=== PATIENT | male | born 1960 | race Hispanic/Latino ===

== ENCOUNTER 2018-09-21 13:20 | Day surgery (SDC) | payer BC ==
[2018-09-21 13:52] VITALS: BMI 30.6
[2018-09-21] MEDS ORDERED: Midazolam 2 MG/2 ML VIAL ONE (16:29)
[2018-09-21] MEDS ORDERED: Propofol 10 mg/ml Inj (20 ML) ONE (16:29)
[2018-09-21] MEDS ORDERED: Lidocaine 2% Jelly (Uro-Jet) ONE (16:34)
[2018-09-21] MEDS ORDERED: cefTRIAXone 1 gm 1 GM/100 ML BAG IVPB ONE (16:34)
[2018-09-21] MEDS ORDERED: Ciprofloxacin 400mg/200ml D5W 400 MG/200 ML BAG IVPB STA (16:52)
[2018-09-21] MEDS ORDERED: Oxycodone/Acetaminophen 5/325 mg Tab PO PRN (16:52)
[2018-09-21] MEDS ORDERED: Gentamicin 80 mg in 0.9% NS 80 MG/100 ML BAG IVPB SCH (17:00)
[2018-09-21] MEDS ORDERED: HYDROmorphone 0.5 mg/0.5 ml ISec IVP PRN (17:02)
[2018-09-21 18:21] VITALS: PULSE 58; RESP 18; O2SAT 98
[2018-09-21 18:59] VITALS: BP 126/72; TEMP 97.8
--- NOTE | 2018-09-22 06:16 | OP ---
PROCEDURE DATE: 09/21/2018 PREOPERATIVE DIAGNOSES: Elevated prostate-specific antigen, voiding dysfunction, nocturia, urgency, and frequency. POSTOPERATIVE DIAGNOSES: Elevated prostate-specific antigen, voiding dysfunction, nocturia, urgency, and frequency. PROCEDURE: Ultrasound of the prostate and ultrasound-guided prostate biopsy. SURGEON: Ezequiel Gallardo MD SPECIMEN SENT DOWN: Prostate cores. We did multiple cores. Again, see the history and physical for further details. COMPLICATIONS: There were no complications. FINDINGS: The findings were; there was an area that definitely looked a little bit more nodular. I do not really see that there is a hypoechoic lesion and there were some normal prostatic calcifications. INDICATIONS: See history and physical for further details and indications for the procedure. He had done an MRI of the prostate, which we are focusing a little bit more. See the MRI report as well. We had discussed the options of dealing with skull-base fusion biopsy. I explained the details of the MRI, technology, etc., but after discussing various options, he is here now for the above procedure. DESCRIPTION OF PROCEDURE: The patient was brought to the OR and was placed on the table. Routine monitors were placed. Time-out was called to confirm the patient and positioning, in fact, decubitus position. We used a BK 7.5 MHz probe, inserted via the rectum. We gave antibiotic prophylaxis. We did an ultrasound the prostate. The prostate volume measures to be basically about 30 x 40 mL. We then did random biopsies and resection in quadrants, left base, left mid, right apex, right base, right mid, right apex, two at each area. We did a few more in the areas that were abnormal by MRI. We can see the report and we sent a few extra specimens in this case because of extra concern. The post-biopsy rectal exam is within normal limits. There was some bleeding noted. All within normal limits. The patient tolerated the procedure well without complications. Ezequiel Gallardo MD
--- NOTE | 2018-09-22 06:17 | HP ---
UROLOGY ADMISSION HISTORY AND PHYSICAL REASON FOR ADMISSION: For workup of elevated PSA. HISTORY OF PRESENT ILLNESS: Mr. Kim is a pleasant gentleman and is quite well on a social note and medical note. He has voiding dysfunction, decreased force of stream, irritative and obstructive complaints. getting worse, and he has an elevated PSA. We discussed options. He also had an MRI of the prostate which shows an abnormal uptake but for various reasons, we are going to schedule the fusion biopsy but for various reasons specifically at the concerning time, he wanted to get a biopsy as quickly as possible. We have discussed options, risks, benefits, and alternatives. We will bring him after the standard of care transrectal ultrasound of the prostate and ultrasound-guided prostate biopsy, but not a fusion MRI technique. I discussed this with him at length. he wants to get the biopsy and is very concerned, and so we are going to do the biopsies as noted. We will focus on extra biopsies as well. Details of medical and surgical history is as listed on the chart other than remarkable from urology standpoint. REVIEW OF SYSTEMS: As listed above. Weight loss, chest pain, shortness of breath, none of those are . Urology review of systems is significant for has been pretty stable for everything. MEDICATIONS: See the chart. ALLERGIES: SEE THE CHART. SOCIAL HISTORY: He is . PHYSICAL EXAMINATION: GENERAL: A well-nourished male, no apparent distress. VITAL SIGNS: Stable. LUNGS: Clear. ABDOMEN: Overall soft and nontender. No flank mass appreciated. GENITOURINARY: Normal phallus without discharge. No testicular mass. RECTAL: The rectal exam reveals a 30-g prostate, soft and smooth. No specific nodularity even on the MRI and even on everything, he does not really feel any abnormalities. DIAGNOSES: Elevated prostate-specific antigen, voiding dysfunction and abnormal MRI. ASSESSMENT AND PLAN: We discussed the possibility for prostate ultrasound and MRI and fusion biopsy. We discussed the timing of such. He wants the biopsy as quickly as possible so this will be the next most rapid sequence. The patient is being brought here at [facility]. Plan as follows. 1. Antibiotic prophylaxis. 2. Ultrasound of the prostate. 3. Ultrasound guided prostate biopsy. 4. Further plans will follow. We will also do couple extra biopsies. Ezequiel Gallardo MD [facility] # [id number]
== END 2018-09-21 19:00 | disposition home or self-care (01) ==
LOC: C.SDS 13:20
PROVIDERS: ATTEND Urology
DX: C61 Malignant neoplasm of prostate (principal); N40.0 Benign prostatic hyperplasia without lower urinary tract symptoms
CPT/HCPCS: 55700; 88305; 88342; J0696; J0744; J1580; J2001; J2250; J2704; J3010